=== PATIENT | male | born 1980 | race African-American/Black ===

== ENCOUNTER 2018-12-04 16:37 | Emergency (ER) | payer MEDICAID ==
[~2018-12-04] VITALS: Ht 175.3 cm; Wt 90.7 kg
[2018-12-04 16:50] VITALS: BP 144/98
--- NOTE | 2018-12-04 16:50 | NUR ---
ED Nurse Note: Patient walked into ED from home c/o laceration located on his left upper elbow, patient states that he was playing with knives, complains of 5/10 pain. patient is alert and oriented x4, ambulatory with a steady gait, VSS
[2018-12-04] MEDS ORDERED: Lidocaine 2% 20mg/ml/EPI 0.01mg/ml 20ml INJ ONE (17:00)
[2018-12-04] MEDS ORDERED: Tetanus/Diptheria/Pertussis IM ONE (17:00)
[2018-12-04] MEDS ORDERED: ceFAZolin 1gm/50ml Premix 50 ML IV ONE (18:00)
[2018-12-04 19:00] VITALS: BP 137/94
--- NOTE | 2018-12-04 20:24 | Emergency Room Report ---
History of Present Illness General Chief Complaint: Laceration Source: Patient (Thor Hastings MD) Present Illness HPI 37 YO Male presents to the emergency department complaining of laceration to the left posterior elbow after accidentally being struck by a title abstractor knife that his friend was throwing. Patient reports 10 out of 10 severity pain he denies taking blood thinning medications and he states he is not sure when his last tetanus vaccination was. Denies numbness tingling or loss of sensation or gross motor movements of the extremity. Pt. denies bleeding at this time. (Radha Che) Allergies: Coded Allergies: No Known Allergies (Unverified , 12/04/18) Patient History Past Medical History: see triage record Past Surgical History: none Pertinent Family History: none Reviewed Nursing Documentation: PMH: Agreed; PSxH: Agreed (Radha Che) Nursing Documentation-PMH Past Medical History: No Stated History (Thor Hastings MD) Review of Systems All Other Systems: negative except mentioned in HPI (Radha Che) Physical Exam Vital Signs Date Time Temp Pulse Resp B/P (MAP) Pulse Ox O2 Delivery O2 Flow Rate FiO2 12/04/18 16:44 98.2 100 18 144/98 (113) 97 Room Air (Thor Hastings MD) Sp02 EP Interpretation: reviewed, normal General Appearance: no apparent distress, alert, GCS 15, non-toxic Head: normocephalic, atraumatic Eyes: bilateral eye normal inspection, bilateral eye PERRL ENT: hearing grossly normal, normal voice Neck: full range of motion Respiratory: chest non-tender, lungs clear, normal breath sounds, speaking full sentences Cardiovascular #1: regular rate, rhythm, normal capillary refill Cardiovascular #2: 2+ radial (R), 2+ radial (L) Musculoskeletal: back normal, gait/station normal, normal range of motion, non- tender - no bony ttp, FROM Neurologic: alert, oriented x3, responsive, motor strength/tone normal, sensory intact, speech normal, grossly normal, distal neuro normal, grossly normal Psychiatric: judgement/insight normal Skin: laceration - Posterior left elbow laceration approx in length with partial laceration of the triceps muscle. no bleeding at this time, no visible FB Lymphatic: no adenopathy (Radha Che) Procedures Laceration/Wound Repair Laceration/Wound Repair : Consent: Emergent Wound Location: upper extremity Wound's Depth, Shape: into muscle, linear Wound Explored: clean Irrigated w/ Saline (ccs): 150 Betadine Prep?: Yes Anesthesia: Lidocaine w/ Epi Volume Anesthetic (ccs): 10 Wound Debrided: None Wound Repaired With: elizabeth - 11 Layer Closure?: Yes Deep Layer Suture Size/Type: 3:0 Number Deep Layer Sutures: 6 Sterile Dressing Applied?: Yes Splint Applied?: Yes Patient Tolerated: Well Complications: None (Thor Hastings MD) Medical Decision Making PA Attestation Dr. Hastings is my supervising Physician whom patient management has been discussed with. (Radha Che) Diagnostic Impression: Primary Impression: Laceration Additional Impression: Laceration of left triceps muscle Qualified Codes: S46.322A - Laceration of muscle, fascia and tendon of triceps , left arm, initial encounter ER Course 37 YO Male presents to the emergency department complaining of laceration to the left posterior elbow after accidentally being struck by a title abstractor knife that his friend was throwing. Patient reports 10 out of 10 severity pain he denies taking blood thinning medications and he states he is not sure when his last tetanus vaccination was. Denies numbness tingling or loss of sensation or gross motor movements of the extremity. Pt. denies bleeding at this time. Ddx considered but are not limited to laceration, tendon injury, cellulitis, amputation just to name a few. Vital signs: are WNL, pt. is afebrile H&PE are most consistent with: Posterior left elbow laceration approx 3.5 in length with partial laceration of the triceps muscle. FROM, NVI ORDERS: -X-ray left elbow: Negative for FB ED INTERVENTIONS: -Tetanus vaccine was administered as pt. vaccination status was unknown. -1gm Ancef IV - The wound was copiously irrigated with normal saline, and explored for foreign body for which no FB was found. - The wound was approximated and closed BY DR. HASTINGS -- PLEASE SEE HIS PROCEDURE NOTE> -Bacitracin and sterile dressing is applied. Long arm posterior splint applied to the left arm by critical systems technician. Pt. remains neurovascularly intact. - Left arm Sling applied by critical systems technician. Pt. remains neurovascularly intact. Discussed with patient: IT IS CRITICAL THAT HE SEEK URGENT ORTHOPEDIC FOLLOW UP. He will be receiving resource information for near by orthopedic urgent care clinic in case he is unable to see a specialist through his PCP in a timely manner. D/w pt. The extent of scarring is unknown at this time. The patient verbalized his agreement and understanding of this treatment plan. DISCHARGE: At this time pt. is stable for d/c to home. Will provide printed patient care instructions, and any necessary prescriptions. Care plan and follow up instructions have been discussed with the patient prior to discharge. (Radha Che) Other X-Ray Diagnostic Results Other X-Ray Diagnostic Results : X-Ray ordered: Left Elbow # of Views/Limited Vs Complete: 2 View Indication: Pain EP Interpretation: Yes PA Xray: Interpretation reviewed, by supervising MD Interpretation: no dislocation, no soft tissue swelling, no fractures, other - - positive for Soft tissue laceration- No FB's Impression: Other - Soft tissue laceration- Abnormal Electronically Signed by: Radha Che PA-C (Radha Che) Last Vital Signs Date Time Temp Pulse Resp B/P (MAP) Pulse Ox O2 Delivery O2 Flow Rate FiO2 12/04/18 19:00 98.5 88 16 137/94 97 Room Air (Thor Hastings MD) Disposition: HOME, SELF-CARE Condition: Stable Scripts Bacitracin/Polymyxin B Sulfate (BACITRACIN-POLYMYXIN OINTMENT) 28.35 Gm Oint...g. 1 APPLIC TP BID, #28.3 GM Prov: Radha Che 12/04/18 Amoxicillin/Potassium Clav 875-125* (AUGMENTIN 875-125 TABLET*) 1 Each Tablet 1 TAB ORAL TWICE A DAY for 10 Days, #20 TAB Prov: Radha Che 12/04/18 Ibuprofen* (MOTRIN*) 600 Mg Tablet 600 MG ORAL THREE TIMES A DAY, #30 TAB 0 Refills Prov: Radha Che 12/04/18 Referrals: [facility],REFERRING (PCP) [facility] Departure Forms: Return to Work Return to Work Date: Dec 08, 2018 Work Restrictions: No Heavy Lifting Other Restrictions: limited use of left arm. until cleared by medical insurance coding specialist. Return to Full Activity: Dec 15, 2018 Patient Instructions: Laceration Care, Adult Additional Instructions: Take medications as directed. Follow up with an EXAMINER RATING CLERK in 3 days, even if your symptoms have resolved. --Please review list of ORTHOPEDIC Clinics and primary care clinics, if you do not already have a primary care provider who can give you an Orthopedic Referral. Return sooner to ED if new symptoms occur, or current symptoms become worse. - Please note that this Emergency Department Report was dictated using [employer] cutting machine operator technology software, occasionally this can lead to erroneous entry secondary to interpretation by the dictation equipment. Thor Hastings MD Dec 04, 2018 20:24 Radha Che Dec 04, 2018 20:36
[2018-12-04] MEDS ORDERED: BACITRACIN-P28.35 GM TP (20:37)
[2018-12-04] MEDS ORDERED: IBUPROFEN600 MG ORAL (20:37)
[2018-12-04] MEDS ORDERED: AUGMENTIN 875-1 EAC1 ORAL (20:37)
[2018-12-04 21:20] VITALS: BP 132/92
--- NOTE | 2018-12-04 21:20 | NUR ---
ER DISCHARGE NOTE: Patient is cleared to be discharged per ERMD, pt is aox4, on room air, with stable vital signs. pt was given dc and prescription instructions, pt was able to verbalize understanding, pt id band and iv site removed without complications. pt is able to ambulate with steady gait. pt took all belongings.
--- NOTE | 2018-12-05 10:54 | Diagnostic Imaging Report ---
Indication: Left elbow pain and injury Findings: 3 views of the left elbow were obtained. No acute fractures, malalignment, erosions or periostitis are identified. There is suggestion of a soft tissue laceration posteriorly.. No radiopaque foreign body identified Impression: Soft tissue injury suspected. No acute fracture
== END 2018-12-04 21:20 | disposition home or self-care (01) ==
LOC: EMR 17:22
DX: S46.322A Laceration of muscle, fascia and tendon of triceps, left arm, initial encounter (principal); Z23 Encounter for immunization; W26.0XXA Contact with knife, initial encounter; Y92.9 Unspecified place or not applicable
CPT/HCPCS: 12035; 29105; 73070; 90471; 90715; 96365; J0690; Z7502; 99284